=== PATIENT | male | born 1965 | race Caucasian/White ===

== ENCOUNTER 2019-04-24 14:03 | Outpatient (CLI) | payer OTHER ==
--- NOTE | 2019-04-24 14:29 | EKG ---
Test Reason : Blood Pressure : / mmHG Vent. Rate : 052 BPM Atrial Rate : 052 BPM P-R Int : 142 ms QRS Dur : 084 ms QT Int : 432 ms P-R-T Axes : 029 019 006 degrees QTc Int : 401 ms Sinus bradycardia Otherwise normal ECG No previous ECGs available Confirmed by DR. Radha CHAU ([id number]) on 04/24/2019 2:29:02 PM Referred By: RAMIN Confirmed By:DR. Radha CHAU
== END 2019-04-24 14:04 | disposition home or self-care (01) ==
LOC: LABBT 14:03
PROVIDERS: ATTEND Internal Medicine
DX: Z01.818 Encounter for other preprocedural examination (principal); M54.12 Radiculopathy, cervical region
CPT/HCPCS: 93005; 93010

== ENCOUNTER 2019-05-04 08:06 | Day surgery (SDC) | payer OTHER ==
[2019-04-24 13:24] VITALS: BMI 30.1
--- NOTE | 2019-05-03 21:20 | HP ---
Mr. Recinos is a pleasant 53-year-old man here today via referral from Dr. Brown and Dr. Garcia at [facility] [place] for evaluation of sudden onset of left-sided C7 radicular pattern pain with an MRI from [facility] that reveals a large lateral disk osteophyte complex at C6-C7 as well. He has attempted oral prednisone as well as a week's worth of physical therapy and home exercise. has resulted in no significant improvement. 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 He has noticed that particularly with his left hand, he is not able to make as he typically does. PAST MEDICAL HISTORY: Hypertension. CURRENT MEDICATIONS: Lisinopril and Advil. ALLERGIES: NO KNOWN DRUG ALLERGIES. PHYSICAL EXAMINATION: GENERAL: The patient is alert and oriented x3. MUSCULOSKELETAL: [employer] Selling strength is marginally reduced in the left, compared to the right. Mild restriction of cervical range of motion to the left and positive Spurling maneuver in that direction. No sensory disturbance that I can discern. REVIEW OF SYSTEMS: The patient reports pain and numbness in left upper extremity, pain in the neck, and restriction of range of motion in the neck. Denies fever, chills, or diaphoresis. Denies abdominal pain. Denies chest pain. Denies nausea. Denies edema. Denies dizziness or clumsiness. ASSESSMENT: Cervical radiculopathy. PLAN: Dr. Burris met with the patient, reviewed imaging, and advocated for a C6-C7 ACDF. He explained to the patient the risks, benefits, and alternatives of the procedure. The patient expressed understanding and elected to move forward with surgery as discussed. I do believe the patient is mentally competent and capable of making medical decisions for himself. We will move forward with surgery as planned. Job ID: [id number]
[2019-05-04] MEDS ORDERED: Thrombin 5000 UNITS/5 ML VIAL ONE (10:25)
[2019-05-04] MEDS ORDERED: ePHEDrine/0.9% NaCl/PF SYRINGE 50 mg/10 ml ONE (10:26)
[2019-05-04] MEDS ORDERED: Lidocaine 1% PF 5 ML VIAL ONE (10:26)
[2019-05-04] MEDS ORDERED: PROPOFOL 200 MG/20 ML VIAL ONE (10:26)
[2019-05-04] MEDS ORDERED: Glycopyrrolate 0.2 MG/ML 5 ML SYRINGE ONE (10:26)
[2019-05-04] MEDS ORDERED: PHENYLEPHRINE-NS 100 MCG/ML 10 ML SYRINGE ONE (10:26)
[2019-05-04] MEDS ORDERED: Ondansetron PF 4 MG/2 ML Vial ONE (10:26)
[2019-05-04] MEDS ORDERED: Rocuronium Bromide 10 MG/ML (10ML VIAL) ONE (10:26)
[2019-05-04] MEDS ORDERED: Fentanyl 100 MCG/2 ML VIAL ONE ×4 (10:51→13:03)
[2019-05-04] MEDS ORDERED: Tamsulosin HCl 0.4 MG CAP ONE (12:47)
[2019-05-04] MEDS ORDERED: HYDROcodone/Acetaminophen 5/325 mg Tablet ONE (13:33)
[2019-05-04] MEDS ORDERED: Cyclobenzaprine 10 MG TAB ONE (14:34)
--- NOTE | 2019-05-04 18:33 | OP ---
DATE OF PROCEDURE: 05/04/2019 MACHINE FITTER: Zac Vasquez PA-C INDICATION: Pain. DIAGNOSIS: Cervical radiculopathy. PROCEDURES PERFORMED: Anterior cervical diskectomy and fusion, C6-C7. ANESTHESIA: General. DESCRIPTION OF PROCEDURE: The patient was brought into the operating room and placed under general anesthesia. He was placed on the table in a supine position. A transverse incision was planned over the lateral aspect of the neck on the right. After prepping and draping and after an appropriate operative pause, the incision was created. The underlying platysma muscle was identified and incised. A blunt tissue plane anterior to the sternocleidomastoid muscle was used to gain access to the prevertebral space. Self-retaining retractors were placed and a C-arm image was obtained to confirm the appropriate level. An annulotomy was then performed in the C6-C7 disk space. All disk material as well as anterior and posterior osteophytes were removed. After decompressing that segment, an 8 mm lordotic PEEK cage packed with allograft and autograft material were placed within the interbody space. An anterior cervical plate was then fashioned to the front of spine and secured with a total of 4 fixed screws. Midline and lateral structures were then inspected and found to be free from significant trauma. The wound was irrigated. Hemostasis was maintained throughout. The wound was then closed in anatomic layers and a pressure dressing was applied. There were no known procedural complications. Job ID: [id number]
== END 2019-05-04 15:09 | disposition home or self-care (01) ==
LOC: SDC 08:06
PROVIDERS: ATTEND Neurological Surgery
PROC: 0RG10A0 Fusion of Cervical Vertebral Joint with Interbody Fusion Device, Anterior Approach, Anterior Column, Open Approach (ICD-10-PCS; principal; 2019-05-04)
PROC: 0RT30ZZ Resection of Cervical Vertebral Disc, Open Approach (ICD-10-PCS; principal; 2019-05-04)
DX: M54.12 Radiculopathy, cervical region (principal); I10 Essential (primary) hypertension; E66.9 Obesity, unspecified; Z68.30 Body mass index [BMI] 30.0-30.9, adult; Z79.899 Other long term (current) drug therapy
CPT/HCPCS: 76000; C1713; C1776; J0690; J2001; J2405; J2704; J3010